=== PATIENT | male | born 1970 | race Caucasian/White ===

== ENCOUNTER → 2018-02-12 | Outpatient (CLI) | payer OTHER | END | disposition home or self-care (01) | LOC: STAR 15:22 | PROVIDERS: ATTEND Internal Medicine | DX: I44.30 Unspecified atrioventricular block (principal); I49.9 Cardiac arrhythmia, unspecified | CPT/HCPCS: 93005 ==

== ENCOUNTER → 2018-02-25 | Outpatient (CLI) | payer OTHER | END | disposition home or self-care (01) | LOC: STAR 15:43 | PROVIDERS: ATTEND Internal Medicine | DX: I49.9 Cardiac arrhythmia, unspecified (principal) | CPT/HCPCS: 93005 ==

== ENCOUNTER 2018-04-15 10:46 | Emergency (ER) | payer OTHER ==
[~2018-04-15] VITALS: Ht 177.8 cm; Wt 89.5 kg
[2018-04-15] MEDS ORDERED: DILTIAZEM 5 MG/ML, 5ML IV ONE (11:30)
[2018-04-15] MEDS ORDERED: SODIUM CHLORIDE FLUSH 10ML SYR IVF ONE (11:30)
[2018-04-15 11:46] LABS: BASOPHILS # (AUTO) 0.05 x10^3/uL (0-0.1); BASOPHILS % (AUTO) 1 % (0-1); EOSINOPHILS # (AUTO) 0.23 x10^3/uL (0-0.4); EOSINOPHILS % (AUTO) 2 % (1-7); LYMPHOCYTES # (AUTO) 1.47 x10^3/uL (1-3.4); LYMPHOCYTES % (AUTO) 16 % (22-44); MD NO; MEAN CORPUSCULAR HEMOGLOBIN 28.4 pg (27.5-34.5); MEAN CORPUSCULAR HGB CONC 33.6 g/dL (33.2-36.2); MEAN CORPUSCULAR VOLUME 84.5 fL (81-97); MEAN PLATELET VOLUME 9.5 fL (7.4-10.4); MONOCYTES # (AUTO) 0.73 x10^3/uL (0.2-0.8); MONOCYTES % (AUTO) 8 % (2-9); NEUTROPHILS # (AUTO) 7.03 x10^3/uL (1.8-6.8); NEUTROPHILS % (AUTO) 74 % (42-75); PLATELET COUNT 295 x10^3/uL (130-400); RED BLOOD COUNT 5.09 x10^6/uL (4.38-5.82); RED CELL DISTRIBUTION WIDTH 14.7 % (9.4-14.8)
[2018-04-15 11:55] LABS: ALBUMIN 3.9 g/dL (3.4-5.0); ANION GAP 9 mmol/L (5-15); CALCIUM 8.5 mg/dL (8.5-10.1); CHLORIDE 110 mmol/L (98-107)
[2018-04-15 11:59] LABS: TROPONIN I < 0.015 ng/mL (0.000-0.045)
[2018-04-15 12:09] LABS: INTERNATIONAL NORMALIZED RATIO 0.95 (0.93-1.1); PROTHROMBIN TIME 9.9 Seconds (9.6-11.5)
[2018-04-15] MEDS ORDERED: METO50TA82 PO (12:44)
[2018-04-15] MEDS ORDERED: ASPI-496 PO (12:44)
[2018-04-15 14:11] VITALS: BP 111/66
== END 2018-04-15 14:13 | disposition home or self-care (01) ==
LOC: ED 12:33
DX: I48.92 Unspecified atrial flutter (principal); I10 Essential (primary) hypertension; R79.1 Abnormal coagulation profile
CPT/HCPCS: 36415; 71045; 80048; 82040; 84484; 85025; 85610; 85730; 93005; 93306; 96374

== ENCOUNTER → 2018-06-22 | Outpatient (CLI) | payer OTHER ==
[~2018-06-22] MED LIST: ASPI-496 PO; METO50TA82 PO
== END | disposition home or self-care (01) ==
LOC: CARD 10:08
PROVIDERS: ATTEND Internal Medicine Cardiovascular Disease
DX: I42.2 Other hypertrophic cardiomyopathy (principal); I48.91 Unspecified atrial fibrillation
CPT/HCPCS: 93017; 93350

== ENCOUNTER 2018-06-25 16:28 | Emergency (ER) | payer OTHER ==
[~2018-06-25] VITALS: Ht 177.8 cm; Wt 90.0 kg
[2018-06-25] MEDS ORDERED: ASPIRIN 81 MG TABLET CHEW ONE (16:41)
[2018-06-25 16:50] VITALS: BP 113/75
[2018-06-25] MEDS ORDERED: METOPROLOL 1 MG/ML, 5ML IVPush ONE (17:00)
[2018-06-25] MEDS ORDERED: SODIUM CHLORIDE FLUSH 10ML SYR IVF ONE (17:00)
[2018-06-25] MEDS ORDERED: ASPIRIN 81 MG TABLET CHEW PO ONE (17:00)
[2018-06-25] MEDS ORDERED: METOPROLOL 1 MG/ML, 5ML ONE (17:18)
[2018-06-25 17:27] LABS: BASOPHILS # (AUTO) 0.06 x10^3/uL (0-0.1); BASOPHILS % (AUTO) 1 % (0-1); EOSINOPHILS # (AUTO) 0.44 x10^3/uL (0-0.4); EOSINOPHILS % (AUTO) 6 % (1-7); LYMPHOCYTES # (AUTO) 2.18 x10^3/uL (1-3.4); LYMPHOCYTES % (AUTO) 28 % (22-44); MD NO; MEAN CORPUSCULAR HEMOGLOBIN 29.4 pg (27.5-34.5); MEAN CORPUSCULAR HGB CONC 33.9 g/dL (33.2-36.2); MEAN CORPUSCULAR VOLUME 86.7 fL (81-97); MONOCYTES # (AUTO) 0.54 x10^3/uL (0.2-0.8); MONOCYTES % (AUTO) 7 % (2-9); NEUTROPHILS # (AUTO) 4.44 x10^3/uL (1.8-6.8); NEUTROPHILS % (AUTO) 58 % (42-75); PLATELET COUNT 323 x10^3/uL (130-400); RED BLOOD COUNT 4.78 x10^6/uL (4.38-5.82); RED CELL DISTRIBUTION WIDTH 14.1 % (9.4-14.8)
[2018-06-25 17:33] LABS: INTERNATIONAL NORMALIZED RATIO 0.96 (0.93-1.1); PROTHROMBIN TIME 9.9 Seconds (9.6-11.5)
[2018-06-25 17:36] LABS: ALBUMIN 3.6 g/dL (3.4-5.0); ANION GAP 10 mmol/L (5-15); CHLORIDE 108 mmol/L (98-107); CREATININE 0.75 mg/dL (0.7-1.3)
[2018-06-25 17:41] LABS: ALKALINE PHOSPHATASE 71 U/L (45-117); BILIRUBIN,TOTAL 0.4 mg/dL (0.2-1.0); TOTAL PROTEIN 7.2 g/dL (6.4-8.2); TROPONIN I < 0.015 ng/mL (0.000-0.045)
[2018-06-25 18:04] LABS: ALANINE AMINOTRANSFERASE 28 U/L (12-78)
[2018-06-25] MEDS ORDERED: RIVAROXABAN 20 MG TABLET ONE (18:26)
[2018-06-25] MEDS ORDERED: RIVAROXABAN 20 MG TABLET PO ONE (18:30)
== END 2018-06-25 18:52 | disposition home or self-care (01) ==
LOC: ED 17:23
DX: I48.0 Paroxysmal atrial fibrillation (principal); I48.92 Unspecified atrial flutter; I10 Essential (primary) hypertension
CPT/HCPCS: 36415; 71046; 80053; 83735; 84443; 84484; 85025; 85610; 93005; 96374

== ENCOUNTER → 2020-10-25 | Outpatient (CLI) | payer OTHER | END | disposition home or self-care (01) | LOC: CVU 16:11 | PROVIDERS: ATTEND Nurse Practitioner Family | DX: I48.92 Unspecified atrial flutter (principal); I10 Essential (primary) hypertension; E78.5 Hyperlipidemia, unspecified | CPT/HCPCS: 93306 ==

== ENCOUNTER → 2020-10-26 | Outpatient (CLI) | payer OTHER | END | disposition home or self-care (01) | LOC: RAD 16:04 | PROVIDERS: ATTEND Nurse Practitioner Family | DX: I42.2 Other hypertrophic cardiomyopathy (principal); I48.92 Unspecified atrial flutter | CPT/HCPCS: 71046 ==

== ENCOUNTER → 2020-11-20 | Outpatient (CLI) | payer OTHER ==
[~2020-11-20] MED LIST changes: +OMNIPAQUE 350 MG/ML, 150 ML BOTTLE ONE
== END | disposition home or self-care (01) ==
LOC: CFH 12:53
PROVIDERS: ATTEND Internal Medicine Cardiovascular Disease
DX: Z13.6 Encounter for screening for cardiovascular disorders (principal); I42.2 Other hypertrophic cardiomyopathy; I48.92 Unspecified atrial flutter; Z20.822 Contact with and (suspected) exposure to COVID-19
CPT/HCPCS: 71046; 75572; Q9967; U0003

== ENCOUNTER 2020-11-24 06:13 | Observation (INO) | payer OTHER ==
[~2020-11-24] VITALS: Ht 177.8 cm; Wt 109.9 kg
[~2020-11-24 06:13] MED LIST changes: -OMNIPAQUE 350 MG/ML, 150 ML BOTTLE ONE
[2020-11-24] MEDS ORDERED: METO25TA91 PO (06:55)
[2020-11-24] MEDS ORDERED: FLEC100T PO (06:55)
[2020-11-24 06:56] VITALS: BP 130/77
[2020-11-24] MEDS ORDERED: MIDAZOLAM 1 MG/ML, 2ML ONE (07:55)
[2020-11-24] MEDS ORDERED: PROPOFOL 50 ML ONE (07:55)
[2020-11-24] MEDS ORDERED: FENTANYL PF 250 MCG/5ML ONE (07:55)
[2020-11-24] MEDS ORDERED: ROCURONIUM 10 MG/ML,10ML ONE (08:05)
[2020-11-24] MEDS ORDERED: ONDANSETRON 2MG/ML, 2ML ONE (08:05)
[2020-11-24] MEDS ORDERED: DEXAMETHASONE 4 MG/ML, 1ML ONE (08:05)
[2020-11-24 08:16] LABS: BASOPHILS % (AUTO) 1 % (0-1); EOSINOPHILS % (AUTO) 5 % (1-7); LYMPHOCYTES % (AUTO) 24 % (22-44); MEAN CORPUSCULAR HEMOGLOBIN 27.3 pg (27.5-34.5); MEAN CORPUSCULAR HGB CONC 33.2 g/dL (33.2-36.2); MEAN PLATELET VOLUME 8.7 fL (7.4-10.4); MONOCYTES % (AUTO) 9 % (2-9); NEUTROPHILS % (AUTO) 61 % (42-75); PLATELET COUNT 287 x10^3/uL (130-400); RED BLOOD COUNT 4.75 x10^6/uL (4.38-5.82); RED CELL DISTRIBUTION WIDTH 15.1 % (9.4-14.8)
[2020-11-24 08:20] LABS: ANION GAP 6 mmol/L (5-15); CALCIUM 8.3 mg/dL (8.5-10.1); CHLORIDE 112 mmol/L (98-107); CREATININE 0.88 mg/dL (0.7-1.3)
[2020-11-24 08:41] LABS: MD NO
[2020-11-24] MEDS ORDERED: HEPARIN 1,000 UNITS/ML, 10ML ONE ×3 (09:47)
[2020-11-24] MEDS ORDERED: SUCCINYLCHOLINE 20 MG/ML, 10ML ONE (10:47)
[2020-11-24] MEDS ORDERED: ONDANSETRON 2MG/ML, 2ML IVPush PRN ×2 (12:00)
[2020-11-24] MEDS ORDERED: DIPHENHYDRAMINE 50 MG/ML, 1ML IVPush PRN (12:00)
[2020-11-24] MEDS ORDERED: FENTANYL PF 100 MCG/2ML IV PRN (12:00)
[2020-11-24] MEDS ORDERED: EPHEDRINE 50 MG/ML, 1ML IM PRN (12:00)
[2020-11-24] MEDS ORDERED: OXYcodone 5 MG/5 ML ORAL.SOL UDC PO PRN (12:00)
[2020-11-24] MEDS ORDERED: MEPERIDINE/PF 25MG/0.5ML IVPush PRN (12:00)
[2020-11-24] MEDS ORDERED: DIAZEPAM 5 MG/ML, 2ML IVPush PRN (12:00)
[2020-11-24] MEDS ORDERED: ZOLPIDEM 5MG TABLET PO PRN (12:00)
[2020-11-24] MEDS ORDERED: PROMETHAZINE 25 MG/ML, 1ML IVPush PRN (12:00)
[2020-11-24] MEDS ORDERED: EPHEDRINE 50 MG/ML, 1ML IVPush PRN (12:00)
[2020-11-24] MEDS ORDERED: morphine SULFATE 10 MG/ML, 1ML IVPush PRN (12:00)
[2020-11-24] MEDS ORDERED: ACETAMINOPHEN 325 MG TABLET PO PRN (12:00)
[2020-11-24 13:43] VITALS: BP 106/73
[2020-11-24 18:54] VITALS: BP 119/81
[2020-11-24] MEDS: FLECAINIDE 100MG TABLET PO SCH (21:27)
[2020-11-24] MEDS: COLCHICINE 0.6 MG CAPSULE PO SCH (21:27)
[2020-11-24 23:51] VITALS: BP 148/88
[2020-11-25 07:05] VITALS: BP 115/70
[2020-11-25] MEDS: FLECAINIDE 100MG TABLET PO SCH (08:27)
[2020-11-25] MEDS: COLCHICINE 0.6 MG CAPSULE PO SCH (08:27)
[2020-11-25] MEDS ORDERED: METOPROLOL SUCCINATE 25 MG TAB.ER.24H PO SCH (09:00)
[2020-11-25] MEDS ORDERED: COLC0.6C3 PO (09:59)
[2020-11-25] MEDS ORDERED: APIX5TAB PO (09:59)
[2020-11-25] MEDS ORDERED: APIXABAN 5 MG TABLET PO SCH (10:00)
== END 2020-11-25 11:40 | disposition home or self-care (01) ==
LOC: CACL 06:13 → ORIP 11:39 → 5SO 12:58 → DCLOUNGE 11-25 11:30
PROVIDERS: ADMIT Internal Medicine Cardiovascular Disease; ATTEND Internal Medicine Cardiovascular Disease
DX: I48.0 Paroxysmal atrial fibrillation (principal); I48.3 Typical atrial flutter; I48.4 Atypical atrial flutter; F10.10 Alcohol abuse, uncomplicated; Z79.899 Other long term (current) drug therapy
CPT/HCPCS: 36415; 76937; 80048; 85025; 85347; 93306; 93312; 93321; 93325; 93613; 93655; 93656; 93657; 93662; C1730; C1732; C1759; C1766; C1893; C1894; G0378; J0330; J1100; J1644; J2250; J2405; J2704; J3010